=== PATIENT | female | born 2000 | race Two or more races ===

== ENCOUNTER 2024-07-29 10:59 | Emergency (ER) | payer MEDICAID, SELFPAY ==
[2024-07-29 11:09] VITALS: BP 107/88; PULSE 89; RESP 18; TEMP 36.7; O2SAT 97
[2024-07-29 11:30] VITALS: BMI 19.5
--- NOTE | 2024-07-29 11:35 | EDNOTE_ITS ---
ED General RME/HPI General Chief complaint: Psychiatric Symptoms Stated complaint: PSYCH Time Seen by Provider: 07/29/24 11:34 Arrival date/time: 07/29/24 10:59 RME / HPI RME / HPI narrative: 23 year old female with history of schizophrenia presents to the ED BIBA from [facility] placed on a 5150 hold. Per medics, patient was set to be released today however staff at the [facility] noted bizarre behaviors and were unable to safety plan with the patient. While in the ED patient is requesting to speak to mental health and requesting a refill of her psych medications. Patient additionally complains of a cough. No other associated symptoms or complaints reported. Related Data Allergies Allergy/AdvReac Type Severity Reaction Status Date / Time No Known Allergies Allergy Verified 02/10/24 07:07 Review of Systems Review of Systems Narrative Review of Systems: Constitutional: DENIES; Fevers Eyes: DENIES; Loss of vision Head/Ear/Nose: DENIES; Loss of hearing Throat: DENIES; Dysphagia Cardiovascular: DENIES; Chest pain, dyspnea or syncope Respiratory: DENIES; Shortness of breath Gastrointestinal: DENIES; Rectal bleeding or melena. Genitourinary: DENIES; Dysuria (painful or difficult urination) Musculoskeletal: DENIES; Arthralgia (pain in a joint),; Skin: DENIES; Rash Neurological: DENIES; Loss of function or movement Psychiatric: SEE HPI Allergic/Immunologic: DENIES; Urticaria (hives) Past Medical History Past Medical History NEUROLOGIC: Negative Neurological Disorders CARDIAC: Negative Cardiac Disorders GASTROINTESTINAL: Negative Gastrointestinal Disorders GENITOURINARY: Negative Genitourinary Disorders or Renal Disease MUSCULOSKELETAL: Negative Musculoskeletal Disorders ENDOCRINE: Negative Endocrine Disorders Social History SMOKING STATUS: Current every day smoker SUBSTANCE USE: methamphetamine ED Exam Narrative Physical exam: Physical Exam: General: The vital signs were reviewed. Patient is fidgety with jerking motions intermittently just released from [facility] brought in by EMS. The patient is non- toxic, in no apparent distress and appears healthy with a patent airway, no respiratory distress and has no apparent circulatory problems. Head & Scalp: Normocephalic, atraumatic. Face: Appears normal and is without lesions, deformity. Ears: Left external pinna appears normal. Right external pinna appears normal. Eyes: The sclera is anicteric. No obvious photophobia. The Left and Right Orbit/Lid/Conjunctiva appears normal without swelling, discoloration or injection. Nose: The nose is without deformity, discharge or tenderness; Throat: Appears normal. The mucous membranes are pink and moist without exudates, redness or mass seen. The tongue appears normal. Neck: The neck is supple and no apparent mass or adenopathy. Chest: The chest wall is normal in size and symmetry and has no chest wall tenderness or crepitus. The patient displays normal ventilator effort without retractions, accessory muscle use and has adequate air movement bilaterally with no wheezes and no rales. Cardiovascular: Regular rate and rhythm; No murmurs, rubs, or gallops; Gastrointestinal: The abdomen appears normal. No obvious hernias or mass. The abdomen is soft and benign, non-distended, with no pain, no guarding and no rebound tenderness. Bowel sounds are present and normal sounding. No CVA tenderness. Genitourinary: Back/Spine: Normal inspection Extremities/Musculoskeletal/lymphatic: The bilateral upper and lower extremities are warm. There is no evidence of arterial insufficiency. There is no evidence of venous insufficiency/edema. The patient spontaneously moves bilateral upper and lower extremities with no pain and no limitation of movement. There is no apparent, injury or trauma. Skin: The skin is warm, dry and intact. No rashes. No petechia. No purpura. No abnormal bruising. The color is appropriate with no cyanosis. Mental status/Psychiatric: Mental status is occasional irrational jerking motions seem to be a volitional The patient has no apparent delusions, visual hallucinations, no apparent audible hallucinations. The patient has no apparent suicidal thoughts/ideation and no apparent homicidal thoughts/ideation. Neurological: The patient is awake, alert, interactive, cordial, cooperative and is oriented to name and situation. The patient follows commands and answers historical question with no impairment. There is no visual disturbance apparent. The pupils are equal and reactive bilaterally with normal eye movements and no diplopia The bilateral upper and lower extremities have normal strength, normal range of motion and normal functioning. The gait, station and balance not tested due to acuity and on the ambulance gurney. But reported to be walking normally. Course Quality Measures none Orders Category Date Time Status Diet Regular Diet 07/29/24 Dinner Active Alcohol, Blood Medical Stat Lab 07/29/24 11:58 Completed Basic Metabolic Panel Stat Lab 07/29/24 11:58 Completed CBC Stat Lab 07/29/24 11:58 Completed Drug Screen,Urine Stat Lab 07/29/24 11:41 Completed HCG Qualitative,Urine Stat Lab 07/29/24 11:41 Completed Urinalysis Stat Lab 07/29/24 11:41 Completed Vital Signs Vital signs: Vital Signs Temperature 98.1 F 07/29/24 11:09 Pulse Rate 89 07/29/24 11:09 Respiratory Rate 18 07/29/24 11:09 Blood Pressure 107/88 H 07/29/24 11:09 Pulse Oximetry (%) 97 07/29/24 11:09 Oxygen Delivery Method Room Air 07/29/24 11:09 Pulse ox is 97% on room air which is adequate. Discharge Plan Plan Patient Disposition: HOME (Self Care) Prescriptions/Referrals Referrals: Ashkan Newton MD [Primary Care Provider] - In 1 week Problem List Clinical Impression: Psychosis, Methamphetamine abuse Patient/Caregiver Discharge Instructions Additional Instructions: Please never use methamphetamine again it causes abnormal behavioral changes which is why the [facility] brought you to the emergency room for evaluation. Print Language: Azeri Stand Alone Forms: Patient Portal Info Letter MDM Patient Acuity Narrative: Whit Myers am scribing for and in the presence of Dr. Ayala. Patient presents agitated nonstop talking and appears to be under the influence of meth and certain after urine drug screen confirmed that. She was and over the last couple hours she has become much more calm. Her medical workup reveals white count of 13.6 probably secondary to meth and demargination. Hemoglobin is 13.9 electrolytes are within normal limits renal function is normal. Urinalysis was negative for any infection she is not . Drug screen is positive only for methamphetamine. Patient was observed in the emergency department and mental health had initial evaluation came back and reevaluated and now that she is more calm and her thoughts are more collected they cleared her for 5150 and are discharging her home. 1225: Patient is medically cleared for mental health evaluation. Clinical Information Provided by: patient and EMS [facility] and other (Reviewed the 5150 report written by clinician at [facility] ) Meds/Rx considered, not ordered None Labs/Rad/Tests considered, not ordered None Chronic Illness/Social Conditions which may negatively complicate care or outcome(s)-explain: Homeless and Mental health EKG EKG not done Labs Labs: Interpreted by me Imaging Imaging interpretation: none or see narrative above Medication Administration(s) none Diagnosis Differential Diagnosis ED Complaint MDM: Acute anxiety, chronic schizophrenia, psychosis, drug abuse
[2024-07-29 11:54] LABS: Collection Type, Urine Clean Catch
[2024-07-29 12:07] LABS: Basophils % (Auto) 0 % (0-2.5); Eosinophils # (Auto) 0.1 Thou/mm3 (0.0-0.5); Eosinophils % (Auto) 1 % (0-10); Hematocrit 40.5 % (36.0-46.0); Hemoglobin 13.9 g/dL (12.0-16.0); Immature Granulocytes % (Auto) 0 % (0-0); Immature Granulocytes Auto 0.05 Thou/mm3 (0.00-0.00); Lymphocytes # (Auto) 3.1 Thou/mm3 (1.0-4.8); Lymphocytes % (Auto) 23 % (10-50); Mean Corpuscular HGB Conc 34.3 g/dl (31.0-37.0); Mean Corpuscular Hemoglobin 30.3 pg (25.0-35.0); Mean Corpuscular Volume 88 fL (80-100); Monocytes % (Auto) 7 % (0-12); Neutrophils # (Auto) 9.3 Thou/mm3 (1.8-7.7); Neutrophils % (Auto) 68 % (37-80); Nucleated Red Blood Cell % 0 /100 WBC (0); Platelet Count 366 Thou/mm3 (140-440); Red Blood Count 4.58 Miln/mm3 (4.00-5.20); White Blood Count 13.6 Thou/mm3 (3.6-11.0)
[2024-07-29 12:10] LABS: HCG Qualitative,Urine Negative
[2024-07-29 12:11] LABS: Bacteria,Urine Rare; Bilirubin,Urine Negative (Negative); Blood,Urine Negative (Negative); Clarity,Urine Clear (Clear/Hazy); Color,Urine Colorless (Lt Yel-Yel); Glucose, Urine Negative (Negative); Ketones,Urine 1+ (Negative); Leukocyte Esterase,Urine Negative (Negative); Nitrite,Urine Negative (Negative); Protein,Urine Negative (Neg - Trace); RBC,Urine 1 /hpf (0-3); Specific Gravity,Urine 1.005 (1.001-1.035); Squamous Epithelial Cell,Urine 4 /hpf (0-5); Urobilinogen,Urine Negative mg/dL (0.0-1.0); WBC,Urine 2 /hpf (0-5)
[2024-07-29 12:15] LABS: Amphetamine/Methamp Scrn,U Positive (Negative); Barbiturate Screen,Urine Negative (Negative); Benzodiazepines Screen,Urine Negative (Negative); Benzoylecgonine Screen, Ur Negative (Negative); Fentanyl Screen,Urine Negative (Negative); Opiate Screen,Urine Negative (Negative); THC Screen,Urine Negative (Negative)
[2024-07-29 12:23] LABS: Alcohol, Blood Medical < 10.0 mg/dL (0-10.0); Anion Gap 7 (7-16); BUN/Creatinine Ratio 8 Ratio (12-20); Blood Urea Nitrogen < 5 mg/dL (9-23); Carbon Dioxide 29.2 mMol/L (20.0-31.0); Chloride 105 mMol/L (98-107); Creatinine (Component) 0.6 mg/dL (0.6-1.3); Glucose 108 mg/dL (74-106); Osmolality,Calculated 279 (275-295); Potassium 3.6 mMol/L (3.4-5.1); Sodium 141 mMol/L (136-145); eGFR > 60 See Note
[2024-07-29 13:59] VITALS: BP 121/80; PULSE 100; RESP 18; TEMP 36.6; O2SAT 96
--- NOTE | 2024-07-29 14:00 | PC.CC ---
Patient was BIBA on a 5150-Hold by [facility] Clinician Padmini Valerio for Danger to Self. Patient expressed thoughts of wanting to harm herself to Padmini and was unable to engage in viable safety plan. Patient will be re-evaluated once medically cleared.
--- NOTE | 2024-07-29 16:48 | PC.CC ---
Patient is a 23 year-old female BIBA from [facility] on a 5150-hold by Clinician, Padmini Valerio for Danger to Self. ASWFaith and STEAMFITTER SUPERVISOR Student, Nancy met with patient [id number] to complete assessment. ASW introduced self, role, and reason for assessment. Patient provided consent for STEAMFITTER SUPERVISOR Student to remain in room during assessment. ASW disclosed limits of confidentiality as well. Patient appeared alert and oriented to self, place, and situation. Patient?s mood appeared to be euthymic; she was cooperative; made appropriate eye contact; patient had good insight and judgement. Patient?s thought process was linear and organized. No signs of delusions, paranoid or V/h. Patient reports she was arrested for being under the influence of substance. Patient reports she was arrested last night and stayed the night in the long-term. Patient stated, ?I was on a bad high.? Patient reports she is currently homeless. ASW discussed with the patient information that was on the 5150-hold. Patient reports she does not recall as she was ?high.? Patient disclosed that the only time she hears voices is when she is under the influence.? At the time of encounter the patient is denying suicidal and homicidal ideations, visual and auditory hallucination. Per patient, she has never been placed on a 5150-hold and denied past suicide attempts. Patient reports she is not connected to outpatient mental health services and does not have any diagnosis. Patient reports [facility]. Patient is ambulates independently and complete her own ADLs. ASW inquired if there was anyone to make contact with to get collateral information. Patient reports she is estranged from her family. Upon clinical consultation with [employer]AL[employer] AUDITORSara patient does not meet criteria for 5150-hold and hold will be rescinded. Patient is receptive to resourced; however, declined mental health appointment. Patient will be provided with [facility] Community Resource Guide, Warm Line info, meal, appropriate weather clothing. Patient reports she would like to go to the [facility] and would like to call them. Patient was provided with phone to complete intake assessment with [facility]. [facility] is willing to take patient. ASW to arrange transportation via [employer]. ASW provided update of d/c plan and hold being rescinded to Dr. Ayala and university relations director Adrianna who is also bedside RN.
== END 2024-07-29 17:35 | disposition home or self-care (01) ==
PROVIDERS: Emergency Provider Emergency Medicine; PCP Family Medicine
DX: Z04.6 Encounter for general psychiatric examination, requested by authority (principal); F20.9 Schizophrenia, unspecified; F15.10 Other stimulant abuse, uncomplicated
CPT/HCPCS: 36415; 80048; 80307; 80320; 81001; 81025; 85025; 90839; 96127; 99284; G0480